=== PATIENT | female | born 1960 | race Caucasian/White ===

== ENCOUNTER 2018-06-07 14:48 | Emergency (ER) | payer OTHER ==
[~2018-06-07] VITALS: Ht 162.5 cm; Wt 72.6 kg
[2018-06-07] MEDS ORDERED: SYNTHROID150 MCG PO ×2 (14:58→15:05)
[2018-06-07] MEDS ORDERED: IBUPROFEN 600600 M1 PO (15:43)
[2018-06-07] MEDS ORDERED: ACETAMINOPHEN-1 EAC1 PO (15:49)
[2018-06-07 15:52] VITALS: BP 153/88
== END 2018-06-07 15:53 | disposition home or self-care (01) ==
LOC: M.ERS 14:48
DX: R07.81 Pleurodynia (principal); W07.XXXA Fall from chair, initial encounter; Y93.89 Activity, other specified; Y92.89 Other specified places as the place of occurrence of the external cause; Y99.8 Other external cause status